=== PATIENT | female | born 1930 | race Caucasian/White ===

== ENCOUNTER 2019-01-07 10:23 | Outpatient (CLI) | payer MEDICARE ==
--- NOTE | 2019-01-07 12:02 | RAD ---
LUMBOSACRAL SPINE TWO VIEWS: HISTORY: Back pain. The patient has a back brace that is unable to be removed. FINDINGS: The two views of the lumbosacral spine are limited secondary to an overlying back brace with radiopaq ue material. There is wedge compression deformity of the T12 and L1 vertebral bodies with approximately 50% height loss. Vertebroplasty cement is seen within the T12 vertebral body. The vertebral bodies demonstrat e normal alignment. Degenerative changes are seen in the spine. Atherosclerotic calcifications are seen in the aorta. IMPRESSION: Wedge compression fractures of T12 and L1, as above. POS: C
== END 2019-01-07 10:24 | disposition home or self-care (01) ==
LOC: TBSIIMAG 10:23
PROVIDERS: ATTEND Neurological Surgery
DX: M54.9 Dorsalgia, unspecified (principal); S22.080A Wedge compression fracture of T11-T12 vertebra, initial encounter for closed fracture; S32.010A Wedge compression fracture of first lumbar vertebra, initial encounter for closed fracture
CPT/HCPCS: 72100

== ENCOUNTER 2019-02-04 14:35 | Outpatient (CLI) | payer MEDICARE ==
--- NOTE | 2019-02-04 16:10 | RAD ---
LUMBOSACRAL SPINE TWO VIEWS: HISTORY: Wedge compression fractures of the spine. COMPARISON: 01/07/2019 FINDINGS: Two views of the lumbar spine were performed. Diffuse osteopenia is seen. There is a stable wedge c ompression fracture of the T12 vertebral body, which contains vertebroplasty cement. The L1 vertebra l body may have slightly decreased in height, compared to the prior examination. The vertebral polly s demonstrate normal alignment without subluxation. IMPRESSION: Progression of compression deformity of the L1 vertebral body. POS: HEIDI
== END 2019-02-04 14:36 | disposition home or self-care (01) ==
LOC: TBSIIMAG 14:35
PROVIDERS: ATTEND Neurological Surgery
DX: S22.008A Other fracture of unspecified thoracic vertebra, initial encounter for closed fracture (principal); M43.8X6 Other specified deforming dorsopathies, lumbar region
CPT/HCPCS: 72100

== ENCOUNTER 2019-03-05 13:30 | Outpatient (CLI) | payer MEDICARE ==
--- NOTE | 2019-03-05 14:03 | RAD ---
RADIOGRAPH LUMBAR SPINE 2 VIEWS: Date: 03/05/19 HISTORY: Follow-up lumbar compression fracture in 89-year-old female. COMPARISON: 02/04/19. FINDINGS: There are five lumbar-type vertebrae. There is severe, diffuse osteopenia. There is loss of height of thoracic spine vertebral bodies, difficult to evaluate because of the severe osteopenia. Vertebropla sty cement noted in collapsed T12 vertebral body. The L1 vertebral body continues to collapse, and pulliam s now lost approximately 75% of its height. There is bony retropulsion. The L2 through L5 vertebral b kristy heights are maintained. Multilevel high grade disc space narrowing at several levels, including s evere. 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 Mild step-off at superolateral aspect of right superior ra mus fracture has mild callus formation. Bony hypertrophy of old fracture of right inferior ramus. IMPRESSION: 1. Interval further loss of height of the subacute L1 burst fracture since 02/04/19. 2. Old T12 burst fracture treated with vertebroplasty. 3. Diffuse, severe osteopenia. 4. Healing, mildly displaced fracture of right superior ramus. 5. Old fracture of right inferior ramus. IZZY [] POS: PRANEETH
== END 2019-03-05 13:31 | disposition home or self-care (01) ==
LOC: TBSIIMAG 13:30
PROVIDERS: ATTEND Neurological Surgery
DX: S32.011D Stable burst fracture of first lumbar vertebra, subsequent encounter for fracture with routine healing (principal); S32.591D Other specified fracture of right pubis, subsequent encounter for fracture with routine healing; M85.80 Other specified disorders of bone density and structure, unspecified site; Z98.890 Other specified postprocedural states; Z87.81 Personal history of (healed) traumatic fracture
CPT/HCPCS: 72100